=== PATIENT | female | born 1955 | race Caucasian/White ===

== ENCOUNTER → 2018-12-30 | Outpatient (CLI) | payer OTHER ==
--- NOTE | 2018-12-30 15:01 | US ---
EXAMINATION TYPE: US thyroid st tissue head/neck DATE OF EXAM: 12/30/2018 COMPARISON: NONE CLINICAL HISTORY: M54.2 Right Neck Pain. Right ear pain shooting down her neck Probable lymph node visualized 1.4 x 0.8 x 0.8 cm. No abnormality visualized IMPRESSION: No significant abnormality appreciated. Normal-appearing lymph node as discussed.
== END | disposition home or self-care (01) ==
LOC: RADUSWWP 14:13
PROVIDERS: ATTEND Otolaryngology
DX: M54.2 Cervicalgia (principal)
CPT/HCPCS: 76536

== ENCOUNTER → 2021-04-29 | Day surgery (SDC) | payer OTHER ==
[~2021-04-29] MED LIST: diazePAM 5 MG TAB PO PRN
[2021-04-29 09:01] VITALS: TEMP 98.4
--- NOTE | 2021-04-29 10:15 | FL ---
EXAMINATION TYPE: FL myelogram 2 or more regions DATE OF EXAM: 04/29/2021 10:10 AM HISTORY: Lower extremity pain and numbness Informed consent was obtained and all the patient's questions were answered. The L3-L4 level was loc alized under fluoroscopy. Standard sterile technique was utilized as well as appropriate local anest hesia 1% Lidocaine and sodium bicarbonate. Spinal needle was introduced into the thecal sac under fl uoroscopic guidance and 15 mL isovue M-300 was injected. The patient tolerated the procedure well an d left the department in stable condition. CT myelography is to follow. 4 min 7 sec fl. 15 mL isovue M-300 used. IMPRESSION: Successful myelography lumbar and thoracic spine
--- NOTE | 2021-04-29 10:19 | CT ---
EXAMINATION TYPE: CT lumbar spine w con, CT thoracic spine w con DATE OF EXAM: 04/29/2021 COMPARISON: CT lumbar 02/13/2013 HISTORY: Low back pain (accession [id number]), Thoracic spine pain (accession [id number]) CT DLP: 2022.10 (accession [id number]), 2231.30 (accession [id number]) mGycm Automated exposure control for dose reduction was used. CONTRAST: CT scan of the lumbar and thoracic spine is performed with IV Contrast, patient injected with 15l (ac cession [id number]), 15 ml (accession [id number]) mL of Isovue M300 intrathecally. Enhanced CT of the lumbar spine was performed. Bone and soft tissue window settings are submitted as well as coronal and sagittal reconstructions. L1-L2: Normal disc space height. No disc herniation protrusion or central stenosis. No facet joint arthropathy. No evidence for foraminal encroachment. L2-L3: Normal disc space height. No disc herniation protrusion or central stenosis. No facet joint arthropathy. No evidence for foraminal encroachment. L3-L4: Normal disc space height. No disc herniation protrusion or central stenosis. No facet joint arthropathy. No evidence for foraminal encroachment. L4-L5: Normal disc space height. No disc herniation protrusion or central stenosis. No facet joint arthropathy. No evidence for foraminal encroachment. L5-S1: Normal disc space height. No disc herniation protrusion or central stenosis. No facet joint arthropathy. No evidence for foraminal encroachment. Thoracic spine: There is mild superior endplate compression fracture of T11 with loss of height estimated at 20%. No bony retropulsion is evident. There is mild posterior disc bulging at T10-11 without herniation or co rd contact. No central stenosis identified. Remaining levels are normal. There is ventral spondylosis . Spinal cord appears to be of normal caliber and course. No herniation or central stenosis. No nurys yaa mass evident. IMPRESSION: 1. Normal lumbar spine. 2. Mild superior endplate compression fracture of T11. No bony retropulsion. 3. Mild posterior disc bulging at T10-11.
[2021-04-29 10:22] VITALS: RESP 16
[2021-04-29 12:53] VITALS: BP 107/67; PULSE 71
== END ==
LOC: RADPROMAIN 07:53
PROVIDERS: ATTEND Orthopaedic Surgery
DX: M48.54XA Collapsed vertebra, not elsewhere classified, thoracic region, initial encounter for fracture (principal); M54.16 Radiculopathy, lumbar region; M43.16 Spondylolisthesis, lumbar region; M51.24 Other intervertebral disc displacement, thoracic region
CPT/HCPCS: 62305; 72129; 72132; J2001; Q9967

== ENCOUNTER → 2021-09-29 | Outpatient (CLI) | payer OTHER ==
--- NOTE | 2021-09-29 15:21 | BD ---
EXAMINATION TYPE: Axial Bone Density DATE OF EXAM: 09/29/2021 COMPARISON: 05.03.2007 CLINICAL HISTORY: 66 YR OLD FEMALE.....ICD-10 CODE: M89.9 BD DISORDER Height: 58.5 Weight: 231 FRAX RISK QUESTIONS: Family History (Parent hip fracture): YES Glucocorticoids (More than 3mos): YES (Ex: prednisone, prednisolone, methylprednisolone, dexamethasone, and hydrocortisone). Secondary Osteoporosis: YES 3. Menopause before 45: YES RISK FACTORS HISTORY OF: Family History of Osteoporosis: YES, MOTHER, SISTER AND GRANDMOTHER WITH FX Postmenopausal woman: YES, AT 39 YRS OLD TOTAL HYST Hyperparathyroidism: NO Adrenal Insufficiency: NO MEDICATIONS: Prednisone or other steroids: YES, FOR ASTHMA, FOR 20 YRS Thyroid Medications: YES, SYNTHROID FOR ABOUT 20 YRS Additional Medications: PROZAC, AMBIEN, VIT D AND TUMS FOR CALCIUM, Additional History: FIBROMYALGIA, OSTEOARTHRITIS EXAM MEASUREMENTS: Bone mineral densitometry was performed using the [employer]. Bone mineral density as measured about the Lumbar spine is: ----- L1-L4(G/cm2): 1.129 T Score Values are as follows: ----- L1: -0.1 ----- L2: -0.7 ----- L3: -1.0 ----- L4: -0.1 ----- L1-L4: -0.4 Bone mineral density has: Increased 2.7% since study of: 05.03.2007 Bone mineral density about the R hip (g/cm2): 0.974 Bone mineral density about the L hip (g/cm2): 1.015 T Score values are as follows: -----R Neck: -0.7 -----L Neck: -1.5 -----R Total: -0.3 -----L Total: 0.1 Bone mineral density has: Decreased -8.5% since study of: 05.03.2007 FRAX%s: THERE IS A 22.1% CHANCE FOR A MAJOR OSTEOPOROTIC FX AND A 1.3% FOR HIP......PROBABILITY FOR FX IN 10 YRS TIME IMPRESSION: Osteopenia (T Score between -2.5 and -1). There is slightly increased risk of fracture and the patient may be considered for treatment. Re-Screen 2-5 years. NOTE: T-SCORE=SD OF THE YOUNG ADULT MEAN.
== END | disposition home or self-care (01) ==
LOC: RADBDWWP 07:20
PROVIDERS: ATTEND Orthopaedic Surgery
DX: M85.88 Other specified disorders of bone density and structure, other site (principal)
CPT/HCPCS: 77080

== ENCOUNTER → 2022-03-23 | Outpatient (CLI) | payer OTHER ==
[2022-03-23 08:11] VITALS: PULSE 86; RESP 18; TEMP 99
[2022-03-23 08:36] VITALS: BP 125/74
--- NOTE | 2022-03-23 14:30 | P.PAINPG ---
PQRS Measure Charge Sheet Comment: HISTORY OF PRESENT ILLNESS: 66 yr old female with brother at side as a referral from Dr. Gresham presents today with severe and chronic LBP secondary to facet arthropathy for evaluation. Pt states her pain level is 7/10 in intensity, constant, sharp, burning, stabbing in character and localized in the lower aspect of the lumbar spine. Pain radiates towards the BLEs. Pain is provoked w laying supine. Pain is alleviated with PT one year ago, chiropractic treatments 1 yr ago which were discontinued due to a T11 fracture, home exercise regimen, repositioning and rest PMH: MDD, Osteopenia, OA, Hypothyroidism, Vitamin D Deficiency, Seasonal Allergies PSH: Cholecystectomy, Hysterectomy, Cerebral Aneurysm Clips SH: Negative x 3. FH: Non contributory All: See list Meds: See list REVIEW OF ORGAN SYSTEMS: CONSTITUTIONAL: No fevers or chills. No recent weight loss. NEUROLOGICAL: + numbness and tingling along the distal extremities. No seizure disorders or headaches. MUSCULOSKELETAL: + pain PSYCHIATRIC: Denies current depression or suicidal thoughts. Physical Examinations : Constitutional : Cooperative , not in acute distress . Neurologic : Cranial nerve II to XII intact. No focal neurological deficits. Psychiatric : alert & oriented x 3. Matching mood & appropriate affect. Judgment & insight intact. Musculoskeletal : Cervical Spine Motor strength in the deltoid and biceps: Normal right side. Normal Left side Motor strength biceps and the wrist extensors: Normal right side . Normal left side Motor strength in the triceps muscle: Normal right side. Normal left side Deep tendon reflexes: Normal at the biceps. Normal at Brachioradialis. Normal at triceps Vertebral body tenderness to deep palpation over Cervical facet loading test: positive bilaterally Spurling test: positive bilaterally Neck distraction test: positive bilaterally Sindy sign: positive bilaterally Lumbar spine Motor strength lower extremities ,thigh and legs 5/5 Right side , 5/5 Left side Deep tendon reflexes : Normal Knee Jerk. Normal Ankle Jerk Vertebral body tenderness over Lumbar facet Loading Test: positive Right / positive Left over BL L4-L5, L5-S1 w jump reflex Range of motion of the lumbar spine Flexion 30 degrees, extension 10 degrees Straight Leg Raise test: Left/ Right positive at degree Osvaldo test: positive right / positive left. Severe tenderness over the Sacroiliac joint on the Right / Left sides Gaenslen test: positive bilaterally Seated flexion test: positive bilaterally. Sacral spine : Severe tenderness over the Sacroiliac joint: right side / left side Range of motion: Flexion of the lumbar spine <60 degrees Range of motion: Extension of the lumbar spine <20 degrees Gaenslen's Test positive Sammy's Test positive Osvaldo test: positive right side / left side Thigh Thrust Test Sacral Thrust Test Imaging: Computed tomography scan without contrast of the lumbar spine from 04/29/21 shows T10-T11 mild disc bulge and T11 compression Assessment/ Plan : Lumbar facet arthropathy Recommendation of BL facet blocks of the medial branches L4-L5, L5-S1. May need a series of injections, up until RFA, for optimal pain relief. Risks, benefits of procedure discussed and patient verbalized understanding. Denies aspirin or anti- coagulant use or medical history of diabetes. Protocol for discontinuation/ continuation of medications venkat procedure discussed. All questions answered. I have spent greater than 30 minutes on patient care today. Dr Gonsales was available by phone for the evaluation of this patient. The time was used to review the medical records including relevant urine studies and Prescription history (MAPs), review of the available imaging, evaluation and examination of the patient, coordination of care with the medical staff and if applicable referring physicians, as well as creation of the medical record Home Medications: Ambulatory Orders Ergocalciferol [Vitamin D2 (1250 Mcg = 16926 Iu)] 3 cap PO DAILY 04/25/21 FLUoxetine HCL [PROzac] 20 mg PO DAILY 04/25/21 Fluticasone Propion/Salmeterol [Advair 250-50 Diskus] 1 puff IN BID 04/25/21 Levothyroxine Sodium [Synthroid] 112 mcg PO DAILY 04/25/21 Potassium Gluconate [Potassium Gluconate ER] 1 tab PO DAILY 04/25/21 Cyanocobalamin [Vitamin B-12 Injection] 1,000 mcg SQ [id number] 04/29/21 Controlled Substance Measures - Controlled Substance Measures Is patient prescribed a controlled substance at discharge?: No
== END ==
LOC: PNWHC3 07:11
PROVIDERS: ATTEND Specialist
DX: M51.16 Intervertebral disc disorders with radiculopathy, lumbar region (principal); M47.26 Other spondylosis with radiculopathy, lumbar region; M54.6 Pain in thoracic spine; F32.9 Major depressive disorder, single episode, unspecified; M19.90 Unspecified osteoarthritis, unspecified site; E03.9 Hypothyroidism, unspecified; Z87.39 Personal history of other diseases of the musculoskeletal system and connective tissue; Z88.6 Allergy status to analgesic agent; Z88.8 Allergy status to other drugs, medicaments and biological substances
CPT/HCPCS: 99211

== ENCOUNTER 2022-08-11 07:18 | Day surgery (SDC) | payer OTHER ==
[2022-08-09 16:24] VITALS: BMI 40.4
[2022-08-11 07:49] VITALS: TEMP 98
[2022-08-11] MEDS ORDERED: LACTATED RINGERS 1,000 ML IV ONE (08:03)
[2022-08-11] MEDS ORDERED: MIDAZOLAM 2 MG/2 ML VIAL IVP ONE (08:04)
[2022-08-11] MEDS ORDERED: TRIAMCINOLONE ACETONIDE 40 MG/ML 1 ML VIAL ONE (08:25)
[2022-08-11] MEDS ORDERED: MIDAZOLAM 2 MG/2 ML VIAL ONE (08:25)
[2022-08-11] MEDS ORDERED: fentaNYL (PF) 50 MCG/ML 2 ML AMP ONE (08:25)
[2022-08-11] MEDS ORDERED: ROPIVACAINE 5 MG/ML 20 ML AMPULE ONE (08:25)
--- NOTE | 2022-08-11 08:47 | P.PCN ---
Date of Procedure: 08/11/22 Description of Procedure: Pre- and Post-operative Diagnosis: Lumbar facet arthropathy, and lumbar spon dylosis without myelopathy. Procedure: #1 Diagnostic Medial Branch Block at bilateral Lumbar 4/5 and #1 diagnostic dorsal ramus block at Lumbar 5/ sacral ala levels (total 4 levels) Surgeon: Nereida Marcelo Anesthesia: Local: 1% Lidocaine, IV sedation : Versed 2 mg and fentanyl. 100 g Complications: None EBL: None Specimen removed: None Fluoroscopic image: Saved to patient electronic medical records. Indications for Procedure: The patient is well known to pain clinic for his chronic low back pain management. The lumbar facet loading test was positive with a clinical diagnosis of lumbar facet arthropathy. Failed with conservative therapy. Came here for interventional help for better pain relief. Procedure and Findings: The patient was seen and examined. The written informed consent was obtained after explaining the risks, benefits and alternatives of the procedure to the patient. The patient was brought to the procedure room and was placed in the prone position on the operating table table. A pillow was placed under the abdomen to reduce lumbar lordosis. Standard anesthesia monitoring was done through out the procedure. The skin preparation was done with ChloraPrep, and draping was done in usual sterile fashion. Sterile technique was observed throughout the procedure. Under fluoroscopic guidance, right the Lumbar 4, 5 and Sacral ala levels were identified in the AP view. For lumbar L4, and L5 levels the targeting area of superior articular process, and close to the most medial and superior aspect of transverse process identified, marked. 1ml of 1% Lidocaine was used with a 25 gauge needle to achieve adequate local anesthesia of the skin and subcutaneous tissue at each level. A 22 gauge 3.5 inch spinal needle was placed and advanced targeting area which was close to the most medial and superior aspect of the transverse process. For Lumbar 5/ sacral ala level, fluoroscope was used in the anteroposterior view, and the needle tip was placed at the superior and most medial part of sacral ala close to the superior articular process. A bony contact was obtained and needle tip position was confirmed at anteroposterior view. No paresthesia was noted. A negative aspiration was confirmed. 1 ml solution per level was injected, the block solution containing 5 ml of 0.5% ropivacaine preservative-free solution mixed with 40 MG of Kenalog. The needles were removed intact. Entire procedure repeated on the left side. Lumbar area was cleaned and bandages were applied. Disposition : The patient tolerated the procedure very well. The patient was transferred to the recovery room and remained stable until discharged home. The patient was given detailed discharge instructions for infection, bleeding, and increased pain at the injection site, and was advised to seek immediate medical attention should significant side effects develop. The patient will be scheduled with Pain Clinic within 4 weeks for repeat procedure if it's helpful.
[2022-08-11] MEDS ORDERED: LACTATED RINGERS 500 ML IV ONE (08:51)
[2022-08-11 08:55] VITALS: RESP 16
[2022-08-11] MEDS ORDERED: LACTATED RINGERS 1,000 ML IV SCH (09:00)
[2022-08-11 09:13] VITALS: BP 110/76; PULSE 75
--- NOTE | 2022-08-11 09:46 | FL ---
EXAMINATION TYPE: FL guided pain mgmt statistic DATE OF EXAM: 08/11/2022 CLINICAL HISTORY: Low back pain. TECHNIQUE: Fluoroscopy. COMPARISON: None. FINDINGS: Fluoroscopic guidance was provided during pain relief procedure performed by Dr. Goodson. A total of 21 seconds of fluoroscopic time was utilized during the procedure and 6 spot images are a cquired. Images acquired shows needle localization at multiple levels in the lumbar spine. IMPRESSION: As Above.
== END 2022-08-11 09:32 | disposition home or self-care (01) ==
LOC: ORPAIN 07:18
DX: M47.816 Spondylosis without myelopathy or radiculopathy, lumbar region (principal); G89.29 Other chronic pain; J45.909 Unspecified asthma, uncomplicated; M19.90 Unspecified osteoarthritis, unspecified site; E07.9 Disorder of thyroid, unspecified; Z88.9 Allergy status to unspecified drugs, medicaments and biological substances; Z79.899 Other long term (current) drug therapy; Z79.890 Hormone replacement therapy
CPT/HCPCS: 64493; 64494; J2250; J3301; J3010; J2795

== ENCOUNTER → 2022-08-31 | Outpatient (CLI) | payer OTHER ==
[2022-08-31 09:34] VITALS: BP 113/74; PULSE 74; RESP 18; TEMP 97.8
--- NOTE | 2022-08-31 15:25 | P.PAINPG ---
PQRS Measure Charge Sheet History and Exam Findings: All other causes of pain ruled out Comment: A 67 yr old female with a history of severe and chronic low back pain x 2 yrs s/p fall secondary to lumbar DDD and spondylosis with facet arthropathy without myelopathy presents today for evaluation s/p BL MBB L3-L5 #1. Pt states she experienced 100 % pain relief x 1 days s/p procedure. Pain level is currently at /10 in intensity, constant, localized in the lower lumbar spine, sharp in character w shooting towards the L toes. Pain is provoked by laying supine, bending. Pain is alleviated with heat, ice, PT in 2021 which provoked pain, chiropractic treatments which ended in 2021 when her injuries were discussed in detail, topicals, repositioning and rest. Interventional pain procedures completed include BL MBB L3-L5 x1 Patient is currently on Denies Patient denies any side effects of the medication(s), denies excessive drowsiness or sleepiness, denies suicidal ideation and reports that the current pain medication is helping to control the pain and improve activities of daily living. Patient denies any motor or sensory deficits. Patient denies any fever or night sweats, denies any change in the bowel movements or urination. Physical Examination: -Constitutional: Cooperative. Not in acute distress . - Neurologic: Cranial nerve II to XII intact. No focal neurological deficits. - Psychatric: Alert & oriented x 3. Matching mood & appropriate affect. Judgment and insight intact. - Musculoskeletal: Cervical spine: Muscle bulk/ tone/ strength in the bilateral upper extremities normal Vertebral body tenderness to palpation over Spurling test positive Distraction test positive Facet loading test positive Thoracic spine Muscle bulk / tone/ strength in the bilateral paraspinal muscles normal Vertebral body tender to palpation over Facet loading test positive Lumbar spine: Motor bulk/ tone/ strength lower extremities , thigh and legs : 5/5 Deep tendon reflexes : Normal Knee Jerk. Normal Ankle Jerk . Vertebral body tenderness to palpation over Lumbar Facet Loading Test positive TTP over BL L4-L5, L5-S1 facets Straight Leg Raise: positive at 30 degrees right side/ left side Gaenslen's Test positive Sacral spine : Severe tenderness over the Sacroiliac joint: right side / left side Range of motion: Flexion of the lumbar spine <60 degrees Range of motion: Extension of the lumbar spine <20 degrees Gaenslen's Test positive Osvaldo test: positive right side / left side Thigh Thrust Test Sacral Thrust Test Assessment and plan: Chronic low back pain secondary to lumbar degenerative disc disease, spondylosis with facet arthropathy without myelopathy Recommendation of BL MBB L4-L5, L5-S1 #2. May need a series of injections, up until RFA, for optimal pain relief. Risks, benefits of procedure discussed and pt verbalized understanding. Denies anticoagulant use or medical history of diabetes. All patient questions answered I have spent less than 30 minutes on patient care today. Dr Gonsales was available by phone for the evaluation of this patient. The time was used to review the medical records including relevant urine studies and Prescription history (MAPs), review of the available imaging, evaluation and examination of the patient, coordination of care with the medical staff and if applicable referring physicians, as well as creation of the medical record PQRS Narrative: Hx Alcohol Use (MH) No Home Medications: Ambulatory Orders FLUoxetine HCL [PROzac] 20 mg PO DAILY 04/25/21 Fluticasone Propion/Salmeterol [Advair 250-50 Diskus] 1 puff IN BID 04/25/21 Levothyroxine Sodium [Synthroid] 112 mcg PO DAILY 04/25/21 Potassium Gluconate [Potassium Gluconate ER] 99 mg PO DAILY 04/25/21 Cyanocobalamin [Vitamin B-12 Injection] 1,000 mcg SQ [id number] 04/29/21 Cholecalciferol [Vitamin D3 (25 Mcg = 1000 Iu)] 25 mcg PO DAILY 08/10/22 Controlled Substance Measures - Controlled Substance Measures Is patient prescribed a controlled substance at discharge?: No
== END ==
LOC: PNWHC3 07:57
PROVIDERS: ATTEND Specialist
DX: M47.816 Spondylosis without myelopathy or radiculopathy, lumbar region (principal); M51.36 Other intervertebral disc degeneration, lumbar region; G89.29 Other chronic pain; Z88.8 Allergy status to other drugs, medicaments and biological substances
CPT/HCPCS: 99211

== ENCOUNTER 2022-12-01 07:14 | Day surgery (SDC) | payer MEDICARE ==
[~2022-12-01 07:14] MED LIST changes: +LACTATED RINGERS 1,000 ML IV SCH; +LIDOCAINE 1% (10MG/ML) FOR IV START INTRADERMA PRN; -diazePAM 5 MG TAB PO PRN
[2022-12-01 07:50] VITALS: TEMP 97.1
[2022-12-01] MEDS ORDERED: MIDAZOLAM 2 MG/2 ML VIAL ONE (08:17)
[2022-12-01] MEDS ORDERED: ROPIVACAINE 5 MG/ML 20 ML AMPULE ONE (08:17)
[2022-12-01] MEDS ORDERED: methylPREDNISolone ACETATE 40 MG/ML 1 ML VIAL ONE (08:17)
[2022-12-01] MEDS ORDERED: fentaNYL (PF) 50 MCG/ML 2 ML AMP ONE (08:17)
--- NOTE | 2022-12-01 08:49 | P.PCN ---
Date of Procedure: 12/01/22 Procedure(s) Performed: PREOPERATIVE DIAGNOSIS: 1-Lumbar Spondylosis with Facet Arthropathy without myelopathy. 2- Lumber degenerative disc disease. POSTOPERATIVE DIAGNOSIS: 1- Lumbar Spondylosis with Facet Arthropathy without myelopathy. 2- Lumber degenerative disc disease. PROCEDURES : Bilateral Radiofrequency thermocoagulation, L3 , L4 , and L5 medial branch, with fluoroscopic guidance (fluoroscopy images available in the radiology department) ( to denervate the facet joint at bilateral L4-5 ,and L5-S1 levels ). ANESTHESIA: Monitored anesthesia care as per anesthesia department . EBL: Minimal PROCEDURE INDICATION: The patient with low back pain secondary to lumbar facet arthropathy who had more than 80% relief of her pain with previous diagnostic lumbar medial branch block with bupivacaine. PROCEDURE DESCRIPTION / TECHNIQUE: The patient was seen and identified in the preoperative area. Risks, benefits, complications, including but not limited to risk of infection ,bleeding , allergic reactions to the medications and no complete pain releife , and alternatives were discussed with the patient, the patient agreed to proceed with the procedure and signed the consent. IV was started. Vital signs remained stable throughout the procedure. Patient was taken to the OR and time out was completed. The patient was placed in the prone position on the procedure table. The lumber area was prepped and draped in the usual sterile fashion. . Vital signs were closely monitored during the procedure .IV sedation was used during the procedure to decrease patients anxiety. Using AP and then oblique fluoroscopy, the ``eye of the Pierce dog angelia esponding to the connection between the superior and transverse articular processes of right L3, L4, and L5 were identified, marked, and localized with 1% lidocaine. Subsequently, a 18 [id number] radiofrequency cannula with a 10- mm active tip was advanced guided by fluoroscopy to each of the``eyes of the Pierce dog at right L3, L4, and L5. Each site then underwent sensory testing at 50 Hz and 0 to 1 volt and motor testing at 2.5 Hz and 0 to 3 volt with local stimulation, but no radicular symptoms down the legs. Thereafter each sites underwent radiofrequency thermocoagulation at 80 degrees celsius for 90 seconds after injecting 0.5 ml of PF Ropivacaine 1ml, then after the thermocoagulation done , 1 ml of the block solution containing Depo-Medrol 20 mg and 3 ml of Ropivacaine 0.5% was injected at the right L3 , L4 , and L5 , levels after negative aspiration of CSF and blood and with no paresthesias. Cannulas were retracted while injecting lidocaine 1% until the needle is out. The same procedure was repeated at the level of Left L3, L4, and L5 levels. At the end of the procedure, the skin was cleansed and bandages were applied. COMPLICATIONS: No acute complications. DISPOSITION / PLANS: The patient was placed in a supine position and transferred to the recovery area in a stable condition for observation and was discharged from the recovery room after meeting discharge criteria. Home discharge instructions given to the patient by the staff. The patient was reexamined prior to discharge. The patient will schedule a follow up in the clinic in 2-4 weeks.
[2022-12-01] MEDS ORDERED: IV FLUID CONTINUATION 1,000 ML IV ONE (08:52)
--- NOTE | 2022-12-01 09:02 | FL ---
Intraoperative/procedural fluoroscopic services were provided for lumbar bilateral rad frequency. Tot al fluoroscopy time is 37 seconds with a total of 8 submitted images to PACS. Total DAP [id number] mGym2 . Please see the operative note for further details.
[2022-12-01 09:14] VITALS: BP 128/73; PULSE 76; RESP 15
== END 2022-12-01 09:25 | disposition home or self-care (01) ==
LOC: ORPAIN 07:14
PROVIDERS: ATTEND Specialist
DX: M51.36 Other intervertebral disc degeneration, lumbar region (principal); M47.816 Spondylosis without myelopathy or radiculopathy, lumbar region; J45.909 Unspecified asthma, uncomplicated; E07.9 Disorder of thyroid, unspecified; M79.7 Fibromyalgia; Z88.8 Allergy status to other drugs, medicaments and biological substances; Z98.890 Other specified postprocedural states; Z79.890 Hormone replacement therapy; Z79.899 Other long term (current) drug therapy
CPT/HCPCS: 64635; 64636 ×2; J2250; J1030; J3010; J2795

== ENCOUNTER → 2022-12-18 | Outpatient (CLI) | payer MEDICARE ==
[2022-12-18 08:17] VITALS: BP 128/69; PULSE 85; RESP 18; TEMP 98.6
--- NOTE | 2022-12-18 15:26 | P.PAINPG ---
PQRS Measure Charge Sheet Comment: A 67 yr old female with a history of severe and chronic LBP since fall at [facility] in 2020 secondary to lumbar DDD and spondylosis with facet arthropathy without myelopathy presents today for evaluation s/p BL RFA L3-L5. Pt states she experienced 95% pain relief s/p procedure. Pain level is provoked at 7 /10 in intensity, constant, localized in the lower thoracic spine, stabbing in character w shooting up the spine. Pain is provoked by sitting upright for periods of 20 min or more. Pain is alleviated with PT x 6 wks in 2020 which provoked pain, chiropractic treatments weekly on & off in 2020, heat, ice, topicals, repositioning and rest. Interventional pain procedures completed include BL RFA L3-L5 Patient is currently on topicals Patient denies any side effects of the medication(s), denies excessive drowsiness or sleepiness, denies suicidal ideation and reports that the current pain medication is helping to control the pain and improve activities of daily living. Patient denies any motor or sensory deficits. Patient denies any fever or night sweats, denies any change in the bowel movements or urination. Physical Examination: -Constitutional: Cooperative. Not in acute distress . - Neurologic: Cranial nerve II to XII intact. No focal neurological deficits. - Psychatric: Alert & oriented x 3. Matching mood & appropriate affect. Judgment and insight intact. - Musculoskeletal: Cervical spine: Muscle bulk/ tone/ strength in the bilateral upper extremities normal Vertebral body tenderness to palpation over Spurling test positive Distraction test positive Facet loading test positive TTP Thoracic spine Muscle bulk / tone/ strength in the bilateral paraspinal muscles normal Vertebral body tender to palpation over T11 Facet loading test positive TTP Lumbar spine: Motor bulk/ tone/ strength lower extremities , thigh and legs : 5/5 Deep tendon reflexes : Normal Knee Jerk. Normal Ankle Jerk . Vertebral body tenderness to palpation over Lumbar Facet Loading Test positive Straight Leg Raise: positive at 30 degrees right side/ left side Gaenslen's Test positive Sacral spine : Severe tenderness over the Sacroiliac joint: right side / left side Range of motion: Flexion of the lumbar spine <60 degrees Range of motion: Extension of the lumbar spine <20 degrees Gaenslen's Test positive right side / left side Osvaldo test: positive right side / left side Thigh Thrust Test positive right side / left side Sacral Thrust Test positive right side / left side Imaging: CT without contrast of the thoracic spine from 04/29/21 reviewed Assessment and plan: Chronic mid to lower back pain secondary to thoracic disc bulge, DDD, spondylosis with facet arthropathy without myelopathy Recommendation of YUE T11-T12. May need a series of injections for optimal pain relief. Risks, benefits of procedure discussed and pt verbalized understanding. Admits to anticoagulant use or medical history of diabetes. Protocol for discontinuation/ continuation of medications venkat procedure discussed. All questions answered. I have spent less than 30 minutes on patient care today. Dr Gonsales was available by phone for the evaluation of this patient. The time was used to review the medical records including relevant urine studies and Prescription history (MAPs), review of the available imaging, evaluation and examination of the patient, coordination of care with the medical staff and if applicable referring physicians, as well as creation of the medical record - Pain Location Bilateral Back Non-Pharmacological Interventions: Heat, Home Exercise PQRS Narrative: Hx Alcohol Use (MH) No Home Medications: Ambulatory Orders FLUoxetine HCL [PROzac] 20 mg PO DAILY 04/25/21 Fluticasone Propion/Salmeterol [Advair 250-50 Diskus] 1 puff IN BID 04/25/21 Levothyroxine Sodium [Synthroid] 112 mcg PO DAILY 04/25/21 Potassium Gluconate [Potassium Gluconate ER] 99 mg PO DAILY 04/25/21 Cyanocobalamin [Vitamin B-12 Injection] 1,000 mcg SQ [id number] 04/29/21 Cholecalciferol [Vitamin D3 (125 Mcg = 5000 Iu)] 125 mcg PO DAILY 10/27/22 Iron Slow Release 1 dose PO DAILY 10/27/22 Magnesium Slow Release 1 dose PO DAILY 10/27/22 Controlled Substance Measures - Controlled Substance Measures Is patient prescribed a controlled substance at discharge?: No
== END ==
LOC: PNWHC3 07:25
PROVIDERS: ATTEND Specialist
DX: M47.814 Spondylosis without myelopathy or radiculopathy, thoracic region (principal); M51.34 Other intervertebral disc degeneration, thoracic region; G89.29 Other chronic pain; Z88.8 Allergy status to other drugs, medicaments and biological substances
CPT/HCPCS: 99211

== ENCOUNTER 2023-01-11 05:59 | Day surgery (SDC) | payer MEDICARE ==
[2023-01-08 15:47] VITALS: BMI 41.8
[2023-01-11] MEDS ORDERED: LIDOCAINE 1% (10MG/ML) FOR IV START INTRADERMA PRN (06:12)
[2023-01-11] MEDS ORDERED: LACTATED RINGERS 1,000 ML IV SCH (06:12)
[2023-01-11 06:27] VITALS: TEMP 98
[2023-01-11] MEDS ORDERED: IOPAMIDOL M200 10 ML VIAL ONE (07:02)
[2023-01-11] MEDS ORDERED: methylPREDNISolone ACETATE 80 MG/ML 1 ML VIAL ONE (07:02)
[2023-01-11] MEDS ORDERED: MIDAZOLAM 2 MG/2 ML VIAL ONE (07:02)
[2023-01-11] MEDS ORDERED: fentaNYL (PF) 50 MCG/ML 2 ML AMP ONE (07:02)
--- NOTE | 2023-01-11 07:13 | P.PCN ---
Date of Procedure: 01/11/23 Procedure(s) Performed: PREOPERATIVE DIAGNOSIS: 1- Thoracic Degenerative Disc Diseases 2-thoracic spondylosis with Facet arthropathy without myelopathy. 3-thoracic compression fracture POSTOPERATIVE DIAGNOSIS: Same as preop diagnosis. PROCEDURE 1. Thoracic epidural steroid injection under fluoroscopic guidance at the T11- 12 level. (Fluoroscopy imaging was available in radiology department) 2. Thoracic epidurogram. ANESTHESIA: moderate sedation with intravenous Versed 2 mg ,and fentanyle 50 Mcg Sedation start time : 701 Sedation end time : 708 EBL: Minimal PROCEDURE INDICATION: The patient with mid and low back pain and radiculitis symptoms unresponsive to conservative treatment. Fluoroscopy was used to optimize visualization of the needle placement and to maximize safety. PROCEDURE DESCRIPTION / TECHNIQUE: The patient was seen and identified in the preoperative area. Risks, benefits, complications including but not limited to infections ,bleeding ,allergic reaction to the medications ,nerve damage and not complete pain releife , and alternatives were discussed with the patient. The patient agreed to proceed with the procedure and signed the consent. IV was started, and vital signs were stable. Patient was taken to the OR and time out was completed. The patient was placed in the prone position on procedure table and a pillow was placed under the abdomen to reduce lumbar lordosis. The lumbosacral area was prepped and draped in the usual sterile fashion.ere closely monitored during the procedure. Conscious sedation was used during the procedure to decrease patients anxiety. Vital signs was monitered during the entire procedure. Using anterior-posterior fluoroscopy, the T11-12 interlaminar space was identified and the skin over this site was marked and then infiltrated with 1% lidocaine subcutaneously. Subsequently, a 20-gauge Tuohy epidural needle was inserted and advanced toward the epidural space using the ``Loss of resistance technique and guided by AP and lateral fluoroscopy. The correct needle position in the epidural space was verified with the injection of 2 mL of the water soluble contrast dye Isovue 200 contrast and observing an excellent epidurogram with the epidural spread of the dye, after negative aspiration for blood and CSF and in the absence of paresthesias. Again after negative aspiration, a 6 ml mixture containing 80 mg of Depo-medrol ( Preservetive Free ), and 2 ml of preservative free Normal Saline, and 2 ml of preservative free lidocaine 1% solution was injected and a washout of epidurogram was seen. Needle was withdrawn intact, skin was cleansed, and bandages were applied. COMPLICATIONS: None DISPOSITION / PLANS: The patient was placed in a supine position and transferred to the recovery area in a stable condition for observation. There was no evidence of lower extremity motor or sensory deficit after the procedure. Patient was discharged from the recovery room after meeting discharge criteria. Home discharge instructions were given to the patient by the staff. The patient was reexamined prior to discharge. The patient will schedule a follow up in the clinic in 2-4 weeks.
[2023-01-11] MEDS ORDERED: LACTATED RINGERS 1,000 ML IV ONE (07:14)
[2023-01-11 07:42] VITALS: BP 115/80; PULSE 82; RESP 18
--- NOTE | 2023-01-11 11:41 | FL ---
EXAMINATION TYPE: FL guided pain mgmt statistic DATE OF EXAM: 01/11/2023 FLUOROSCOPY Fluoroscopy time of 3 seconds was used during thoracic epidural injection. 1 image/s document/s the procedure. DOSE AREA PRODUCT (DAP) UGY*M,MGY*CM: 0.0151
== END 2023-01-11 07:56 | disposition home or self-care (01) ==
LOC: ORPAIN 05:59
PROVIDERS: ATTEND Specialist
DX: M48.54XA Collapsed vertebra, not elsewhere classified, thoracic region, initial encounter for fracture (principal); M51.14 Intervertebral disc disorders with radiculopathy, thoracic region; M47.24 Other spondylosis with radiculopathy, thoracic region; Z88.9 Allergy status to unspecified drugs, medicaments and biological substances
CPT/HCPCS: 62321

== ENCOUNTER → 2023-01-31 | Outpatient (CLI) | payer MEDICARE ==
[2023-01-31 09:49] VITALS: BP 119/90; PULSE 87; RESP 18; TEMP 98.1
--- NOTE | 2023-01-31 14:41 | P.PAINPG ---
PQRS Measure Charge Sheet Comment: A 67 yr old female with a history of severe and chronic mid back pain x 2 yrs s/p fall on an escalator at [facility] secondary to thoracic DDD and spondylosis with facet arthropathy without myelopathy presents today for evaluation s/p YUE T11- 12. Pt states she experienced 100 % pain relief x 5 days s/p procedure. Pain level is provoked at 9 /10 in intensity, constant, localized in the lower thoracic spine, sore in character w shooting towards the ribs and flanks. Pain is provoked by lifting, pushing, bending, twisting. Pain is alleviated with PT 6 wks in 2021, heat, ice, topicals, repositioning and rest. Massage and chiropractic treatments are too tender to touch. Interventional pain procedures completed include YUE T11-12 Patient is currently on Voltaren gel Patient denies any side effects of the medication(s), denies excessive drowsiness or sleepiness, denies suicidal ideation and reports that the current pain medication is helping to control the pain and improve activities of daily living. Patient denies any motor or sensory deficits. Patient denies any fever or night sweats, denies any change in the bowel movements or urination. Physical Examination: -Constitutional: Cooperative. Not in acute distress . - Neurologic: Cranial nerve II to XII intact. No focal neurological deficits. - Psychatric: Alert & oriented x 3. Matching mood & appropriate affect. Judgment and insight intact. - Musculoskeletal: Cervical spine: Muscle bulk/ tone/ strength in the bilateral upper extremities normal Vertebral body tenderness to palpation over Spurling test positive Distraction test positive Facet loading test positive TTP Thoracic spine Muscle bulk / tone/ strength in the bilateral paraspinal muscles normal Vertebral body tender to palpation over BL paraspinal TPs and TTP T8 - T12 Facet loading test positive TTP Lumbar spine: Motor bulk/ tone/ strength lower extremities , thigh and legs : 5/5 Deep tendon reflexes : Normal Knee Jerk. Normal Ankle Jerk . Vertebral body tenderness to palpation over BL paraspinal TPs and TTP T12- S1 Lumbar Facet Loading Test positive Straight Leg Raise: positive at 30 degrees right side/ left side Gaenslen's Test positive Sacral spine : Severe tenderness over the Sacroiliac joint: right side / left side Range of motion: Flexion of the lumbar spine <60 degrees Range of motion: Extension of the lumbar spine <20 degrees Gaenslen's Test positive right side / left side Osvaldo test: positive right side / left side Thigh Thrust Test positive right side / left side Sacral Thrust Test positive right side / left side Assessment and plan: Chronic mid back pain secondary to thoracic DDD, spondylosis with facet arthropathy without myelopathy Recommendation of BL TPIs T8 - S1. May need a series of injections for optimal pain relief. Risks, benefits of procedure discussed and pt verbalized understanding. Admits to anticoagulant use or medical history of diabetes. Protocol for discontinuation/ continuation of medications venkat procedure discussed. Minimal anesthesia provided, if clinically indicated, consisting of Versed and Fentanyl. Medication: [place] 5/325mg #30 w 1 RF. Narcotic/ Opiate agreement signed today 01/31/23. Use, side effects, adverse reactions, safe storage discussed and pt verbalized understanding. All questions answered. I have spent less than 30 minutes on patient care today. Dr Gonsales was available by phone for the evaluation of this patient. The time was used to review the medical records including relevant urine studies and Prescription history (MAPs), review of the available imaging, evaluation and examination of the patient, coordination of care with the medical staff and if applicable refe rring physicians, as well as creation of the medical record PQRS Narrative: Hx Alcohol Use (MH) No Home Medications: Ambulatory Orders FLUoxetine HCL [PROzac] 20 mg PO DAILY 04/25/21 Fluticasone Propion/Salmeterol [Advair 250-50 Diskus] 1 puff IN BID 04/25/21 Levothyroxine Sodium [Synthroid] 112 mcg PO DAILY 04/25/21 Potassium Gluconate [Potassium Gluconate ER] 99 mg PO DAILY 04/25/21 Cyanocobalamin [Vitamin B-12 Injection] 1,000 mcg SQ [id number] 04/29/21 Cholecalciferol [Vitamin D3 (125 Mcg = 5000 Iu)] 125 mcg PO DAILY 10/27/22 Iron Slow Release 1 dose PO DAILY 10/27/22 Magnesium Slow Release 1 dose PO DAILY 10/27/22 HYDROcodone/APAP 5-325MG [[place] 5-325] 1 tab PO HS PRN 30 Days #30 tab 01/31/23 HYDROcodone/APAP 5-325MG [[place] 5-325] 1 tab PO HS PRN 30 Days #30 tab 01/31/23 Controlled Substance Measures - Controlled Substance Measures Is patient prescribed a controlled substance at discharge?: Yes When asked, does pt state using other controlled substances?: No If prescribed controlled substance>3 days was MAPS reviewed?: Yes If Rx opioid, was Start Talking consent form obtained?: Yes If opioid is for acute pain is fill amount 7 days or less?: No Was information provided regarding opioid addiction?: Yes
== END ==
LOC: PNWHC3 07:39
PROVIDERS: ATTEND Specialist
DX: M51.34 Other intervertebral disc degeneration, thoracic region (principal); M47.814 Spondylosis without myelopathy or radiculopathy, thoracic region; G89.29 Other chronic pain; Z88.8 Allergy status to other drugs, medicaments and biological substances
CPT/HCPCS: 99211

== ENCOUNTER 2023-03-13 05:57 | Day surgery (SDC) | payer MEDICARE ==
[~2023-03-13 05:57] MED LIST changes: -LIDOCAINE 1% (10MG/ML) FOR IV START INTRADERMA PRN
[2023-03-13 06:16] VITALS: TEMP 97.9
[2023-03-13] MEDS ORDERED: methylPREDNISolone ACETATE 40 MG/ML 1 ML VIAL ONE (07:03)
[2023-03-13] MEDS ORDERED: ROPIVACAINE 5 MG/ML 20 ML AMPULE ONE (07:03)
--- NOTE | 2023-03-13 07:12 | P.PCN ---
Date of Procedure: 03/13/23 Procedure(s) Performed: Procedure= trigger point injections thoracic and lumbar paraspinal muscles bilaterally , 5 on the right side from T8 to L3 , and 4 on the left side from T10 to S1 Preoperative diagnosis= 1-myofascial pain syndromethoracic and lumbar paraspinal muscles 2-thoracic facet arthropathy 3-lumbar facet arthropathy Postoperative diagnosis=Same as preop Diagnosis . Complication = none Condition= stable Anesthesia= none Indication for the procedure= patient complaining of mid and low back pain , examination was positive for multiple trigger point in the thoracic and lumbar paraspinal muscles bilaterally and patient diagnosed with myofascial pain syndrome and is here to have trigger point injections Description of the procedure= procedure risk and benefits discussed with the patient, including but not limited, risk of infection and bleeding, and ALLERGIC reaction to the medication and not complete pain relief and patient agreed with the preceding patient taken to the operating room, placed in sitting position or standard monitors applied to the patient then after induction of anesthesia back prepped with chlorhexidine 3 times , then under sterile technique each of the trigger point that was marked in the preop holding area 5 on the right side thoracic and lumbar paraspinal muscles and 4 on the left side thoracic and lumbar paraspinal muscles each one of them injected with the 2 mL of the mixture of ropivacaine 0.5% 18 ML mixed with 40 mg of Depo-Medrol and 2 mL of the mixture injected at each trigger point after negative aspiration, using 25-gauge needle, injection done after negative aspiration under was no paresthesia during the injection patient tolerated the procedure well without any complications and he will follow up in the pain clinic in a few weeks
[2023-03-13 07:30] VITALS: BP 104/72; PULSE 77; RESP 18
== END 2023-03-13 07:44 | disposition home or self-care (01) ==
LOC: ORPAIN 05:57
PROVIDERS: ATTEND Specialist
DX: M47.815 Spondylosis without myelopathy or radiculopathy, thoracolumbar region (principal); Z88.8 Allergy status to other drugs, medicaments and biological substances
CPT/HCPCS: 20553; J1030; J2795

== ENCOUNTER → 2023-04-19 | Outpatient (CLI) | payer MEDICARE ==
[2023-04-19 08:24] VITALS: BP 136/85; PULSE 87; RESP 16; TEMP 99
--- NOTE | 2023-04-19 13:08 | P.PAINPG ---
PQRS Measure Charge Sheet Comment: A 67 yr old female with a history of severe and chronic mid back pain x 2.5 yrs s/p fall on an escalator at [facility] secondary to thoracic DDD and spondylosis with facet arthropathy without myelopathy presents today for evaluation s/p Thoracolumbar TPIs. Pt states she experienced 99 % pain relief x 3-4 wks s/p p rocedure. Pain level is provoked at 8 /10 in intensity, intermittent, localized in the lower thoracic spine, sore in character w shooting towards the ribs and flanks. Pain is provoked by lifting, pushing, bending, twisting. Pain is alleviated with PT 6 wks in 2021, heat, ice, topicals, repositioning and rest. Massage and chiropractic treatments are too tender to touch. Oswestry axial pain score of 23. Interventional pain procedures completed include YUE T11-12, Thoracolumbar TPIs x1 Patient is currently on Voltaren gel Patient denies any side effects of the medication(s), denies excessive wally wsiness or sleepiness, denies suicidal ideation and reports that the current pain medication is helping to control the pain and improve activities of daily living. Patient denies any motor or sensory deficits. Patient denies any fever or night sweats, denies any change in the bowel movements or urination. Physical Examination: -Constitutional: Cooperative. Not in acute distress . - Neurologic: Cranial nerve II to XII intact. No focal neurological deficits. - Psychatric: Alert & oriented x 3. Matching mood & appropriate affect. Judgment and insight intact. - Musculoskeletal: Cervical spine: Muscle bulk/ tone/ strength in the bilateral upper extremities normal Vertebral body tenderness to palpation over Spurling test positive Distraction test positive Facet loading test positive TTP Thoracic spine Muscle bulk / tone/ strength in the bilateral paraspinal muscles normal Vertebral body tender to palpation over Taut bands w twitch response over BL T8-T12 Facet loading test positive TTP Lumbar spine: Motor bulk/ tone/ strength lower extremities , thigh and legs : 5/5 Deep tendon reflexes : Normal Knee Jerk. Normal Ankle Jerk . Vertebral body tenderness to palpation over Lumbar Facet Loading Test positive Taut bands w twitch response over BL L1-S1 Straight Leg Raise: positive at 30 degrees right side/ left side Gaenslen's Test positive Sacral spine : Severe tenderness over the Sacroiliac joint: right side / left side Range of motion: Flexion of the lumbar spine <60 degrees Range of motion: Extension of the lumbar spine <20 degrees Gaenslen's Test positive right side / left side Osvaldo test: positive right side / left side Thigh Thrust Test positive right side / left side Sacral Thrust Test positive right side / left side Assessment and plan: Chronic mid back pain secondary to thoracic DDD, spondylosis with facet arthropathy without myelopathy Recommendation of BL TPIs T8 - S1 #2. May need a series of injections for optimal pain relief. Risks, benefits of procedure discussed and pt verbalized understanding. Admits to anticoagulant use or medical history of diabetes. Protocol for discontinuation/ continuation of medications venkat procedure discussed. Minimal anesthesia provided, if clinically indicated, consisting of Versed and Fentanyl. All questions answered. I have spent less than 30 minutes on patient care today. Dr Gonsales was available by phone for the evaluation of this patient. The time was used to review the medical records including relevant urine studies and Prescription history (MAPs), review of the available imaging, evaluation and examination of the patient, coordination of care with the medical staff and if applicable referring physicians, as well as creation of the medical record PQRS Narrative: Hx Alcohol Use (MH) No Home Medications: Ambulatory Orders FLUoxetine HCL [PROzac] 20 mg PO QAM 04/25/21 Fluticasone Propion/Salmeterol [Advair 250-50 Diskus] 1 puff IN BID 04/25/21 Levothyroxine Sodium [Synthroid] 112 mcg PO QAM 04/25/21 Potassium Gluconate [Potassium Gluconate ER] 99 mg PO DAILY 04/25/21 Cyanocobalamin [Vitamin B-12 Injection] 1,000 mcg SQ [id number] 04/29/21 Cholecalciferol [Vitamin D3 (125 Mcg = 5000 Iu)] 125 mcg PO DAILY 10/27/22 Iron Slow Release 1 dose PO DAILY 10/27/22 Magnesium Slow Release 1 dose PO DAILY 10/27/22 HYDROcodone/APAP 5-325MG [[place] 5-325] 1 tab PO HS PRN 30 Days #30 tab 01/31/23 Controlled Substance Measures - Controlled Substance Measures Is patient prescribed a controlled substance at discharge?: No
== END ==
LOC: PNWHC3 07:21
PROVIDERS: ATTEND Specialist
DX: M51.34 Other intervertebral disc degeneration, thoracic region (principal); M47.814 Spondylosis without myelopathy or radiculopathy, thoracic region; G89.29 Other chronic pain; Z88.8 Allergy status to other drugs, medicaments and biological substances
CPT/HCPCS: 99211

== ENCOUNTER 2023-05-29 06:09 | Day surgery (SDC) | payer MEDICARE ==
[2023-05-29 06:50] VITALS: TEMP 97.4
[2023-05-29] MEDS ORDERED: ROPIVACAINE 5MG/ML 20ML VIAL ONE (07:02)
[2023-05-29] MEDS ORDERED: TRIAMCINOLONE ACETONIDE 40 MG/ML 1 ML VIAL ONE (07:02)
--- NOTE | 2023-05-29 07:14 | P.PCN ---
Date of Procedure: 05/29/23 Description of Procedure: Pre and postop diagnosis: Myofascial pain syndrome Procedure: Trigger point injections X 14 Muscle group X bilateral trapezius, and rhomboids Bilateral lumbar, thoracic paraspinal muscles, and iliocostal lumborum muscle Surgeon: Nereida Goodson Anesthesia: None Complications: None Estimated blood loss: None Specimen removed: None Procedure indications: Patient had a history of myofascial pain syndrome. Patient tried conservative therapy. Came here for intervention procedure for better pain relief. Procedure description: Patient was seen and identified in the holding area risk benefits competitions alternative discussed with the patient. Patient agreed to proceed for the procedure signed the consent. Patient taken to the procedure area. Timeout was completed. A total number of 14 - trigger point area was marked with a sterile marker. After ChloraPrep used to clean the area. Critical pause was taken. Using 25-gauge 1-1/2 inch needle. Needle entered in each market site 1.5 mL of block solution injected at each level. The block solution containing 21 ml of 0.5% preservative-free ropivacaine with [place] 40 MG. Needle removed intact skin cleaned and Band-Aid applied. Patient tolerated the procedure well. Disposition: Patient discharge home after meeting the discharge criteria from the recovery. Patient scheduled to follow up with the pain clinic in 4 weeks for follow-up visit.
[2023-05-29] MEDS ORDERED: LACTATED RINGERS 1,000 ML IV SCH (07:15)
[2023-05-29 07:22] VITALS: RESP 16
[2023-05-29 07:34] VITALS: BP 125/85; PULSE 70
== END 2023-05-29 07:31 | disposition home or self-care (01) ==
LOC: ORPAIN 06:09
DX: M79.18 Myalgia, other site (principal); F32.9 Major depressive disorder, single episode, unspecified; E03.9 Hypothyroidism, unspecified; J45.909 Unspecified asthma, uncomplicated; Z88.1 Allergy status to other antibiotic agents; Z79.890 Hormone replacement therapy; Z79.899 Other long term (current) drug therapy; Z98.890 Other specified postprocedural states
CPT/HCPCS: 20553; J3301; J2795

== ENCOUNTER → 2023-06-25 | Outpatient (CLI) | payer MEDICARE ==
--- NOTE | 2023-06-25 07:53 | P.PN ---
Subjective Progress Note Date: 06/25/23 This is follow up visit for 67 yr old female with a history of severe ,and chronic mid back pain x 2.5 yrs s/p fall on an escalator at [employer] secondary to thoracic DDD ,compression fracture at thoracic spine, and lumbar spondylosis with facet arthropathy without myelopathy presents today for evaluation s/p Thoracolumbar TPIs. Pt states she experienced 99 % pain relief x 3-4 wks s/p procedure. Pain level is provoked at 3-4 /10 in intensity, intermittent, localized in the lower thoracic spine. Pain is provoked by lifting, pushing, bending, twisting. Pain is alleviated with PT 6 wks in 2021, heat, ice, topicals, repositioning and rest. Massage and chiropractic treatments are too tender to touch. Oswestry axial pain score of 23. Interventional pain procedures completed include YUE T11-12, Thoracolumbar TPIs x2 Patient is currently on Voltaren gel Patient denies any side effects of the medication(s), denies excessive drowsiness or sleepiness, denies suicidal ideation and reports that the current pain medication is helping to control the pain and improve activities of daily living. Patient denies any motor or sensory deficits. Patient denies any fever or night sweats, denies any change in the bowel movements or urination. Physical Examination: -Constitutional: Cooperative. Not in acute distress . - Neurologic: Cranial nerve II to XII intact. No focal neurological deficits. - Psychatric: Alert & oriented x 3. Matching mood & appropriate affect. Judgment and insight intact. - Musculoskeletal: Cervical spine: Muscle bulk/ tone/ strength in the bilateral upper extremities normal Vertebral body tenderness to palpation over Spurling test positive Distraction test positive Facet loading test positive TTP Thoracic spine Muscle bulk / tone/ strength in the bilateral paraspinal muscles normal Vertebral body tender to palpation over Lumbar spine: Motor bulk/ tone/ strength lower extremities , thigh and legs : 5/5 Deep tendon reflexes : Normal Knee Jerk. Normal Ankle Jerk . Assessment and plan: Chronic mid back pain secondary to myofascial pain syndrome thoracic and lumbar area, compression fracture at thoracic spine, thoracic DDD, lumbar spondylosis with facet arthropathy without myelopathy. Patient had excellent pain relief after trigger point injection x2 Activity of daily livings improved significant Patient will follow up in the pain clinic when necessary PQRS Narrative: Hx Alcohol Use (MH) No Home Medications: Ambulatory Orders FLUoxetine HCL [PROzac] 20 mg PO QAM 04/25/21 Fluticasone Propion/Salmeterol [Advair 250-50 Diskus] 1 puff IN BID 04/25/21 Levothyroxine Sodium [Synthroid] 112 mcg PO QAM 04/25/21 Potassium Gluconate [Potassium Gluconate ER] 99 mg PO DAILY 04/25/21 Cyanocobalamin [Vitamin B-12 Injection] 1,000 mcg SQ [id number] 04/29/21 Cholecalciferol [Vitamin D3 (125 Mcg = 5000 Iu)] 125 mcg PO DAILY 10/27/22 Iron Slow Release 1 dose PO DAILY 10/27/22 Magnesium Slow Release 1 dose PO DAILY 10/27/22 HYDROcodone/APAP 5-325MG [[place] 5-325] 1 tab PO HS PRN 30 Days #30 tab 01/31/23 Controlled Substance Measures - Controlled Substance Measures Is patient prescribed a controlled substance at discharge?: No Objective - Vital Signs Vital signs: Intake & Output 06/24/23 06/25/23 06/25/23 18:59 06:59 18:59 Weight 117.934 kg
[2023-06-25 08:00] VITALS: BP 118/83; PULSE 88; RESP 15; TEMP 98.8
== END ==
LOC: PNWHC3 07:20
PROVIDERS: ATTEND Specialist
DX: G89.29 Other chronic pain (principal); M51.35 Other intervertebral disc degeneration, thoracolumbar region; M47.816 Spondylosis without myelopathy or radiculopathy, lumbar region; M51.34 Other intervertebral disc degeneration, thoracic region; M47.815 Spondylosis without myelopathy or radiculopathy, thoracolumbar region; M79.18 Myalgia, other site; M54.50 Low back pain, unspecified; Z88.8 Allergy status to other drugs, medicaments and biological substances
CPT/HCPCS: 99211